=== PATIENT | male | born 1935 | race Two or more races ===

== ENCOUNTER 2018-11-04 10:46 | Inpatient (IN) | payer OTHER, MEDICARE ==
[~2018-11-04] VITALS: Ht 177.8 cm; Wt 74.8 kg
[~2018-11-04 10:46] MED LIST: ATOR10; HYDACE5 PO; NIFE30ER; SULTRISS; TAMS.4ER
[2018-11-04 11:40] LABS: BASOPHILS ABSOLUTE AUTO 0.02 K/mm3 (0.00-0.23); BASOPHILS PERCENT AUTO 0 % (0-2); EOSINOPHILS ABSOLUTE AUTO 0.04 K/mm3 (0.00-0.68); EOSINOPHILS PERCENT AUTO 1 % (0-6); Hematocrit 30.5 % (37.0-53.0); Hemoglobin 10.6 g/dL (13.5-17.5); IMMATURE GRAN ABSOLUTE AUTO 0.02 K/mm3 (0.00-0.10); IMMATURE GRAN PERCENT AUTO 0 % (0-1); LYMPHOCYTES ABSOLUTE AUTO 0.98 K/mm3 (0.84-5.20); LYMPHOCYTES PERCENT AUTO 19 % (21-46); MONOCYTES ABSOLUTE AUTO 0.94 K/mm3 (0.16-1.47); MONOCYTES PERCENT AUTO 18 % (4-13); Mean Corpuscular HGB 34.9 pg (26.0-34.0); Mean Corpuscular HGB Conc 34.8 g/dL (31.5-36.5); Mean Corpuscular Volume 100 fL (80-100); Mean Platelet Volume 10.4 fL (9.1-12.4); NEUTROPHILS ABSOLUTE AUTO 3.13 K/mm3 (1.96-9.15); NEUTROPHILS PERCENT AUTO 61 % (41-73); Platelet Count 174 K/mm3 (150-400); RDW Coefficient Variation 13.3 % (11.7-14.2); Red Blood Cell Count 3.04 M/mm3 (4.30-5.90); White Blood Cell Count 5.13 K/mm3 (4.00-11.30)
[2018-11-04 11:51] LABS: Alanine Aminotransfer (ALT/SGP 45 U/L (12-78); Albumin, Blood 2.3 g/dL (3.4-5.0); Albumin/Globulin Ratio 0.4 (0.8-1.8); Alk Phos 105 U/L (50-136); Anion Gap 6 mmol/L (6-16); Aspartate Aminotrans (AST/SGOT 69 U/L (12-37); Bilirubin, Total 0.6 mg/dL (0.1-1.0); Blood Urea Nitrogen 16 mg/dL (8-24); Bun/Creatinine Ratio 23.7 (12.0-20.0); CO2, Blood 25 mmol/L (21-32); Chloride, Blood 100 mmol/L (98-108); Creatinine, Blood 0.68 mg/dL (0.60-1.20); Glomerular Filtration Rate >60 (60-); Glucose, Blood 154 mg/dL (70-99); Potassium, Blood 3.6 mmol/L (3.5-5.5); Sodium, Blood 131 mmol/L (136-145); Total Protein, Blood 8.3 g/dL (6.4-8.2)
[2018-11-04] MEDS ORDERED: Zocor20 MG PO (12:51)
[2018-11-04] MEDS ORDERED: CARV6.25 PO (12:52)
[2018-11-04] MEDS ORDERED: AMOCLA875 PO (14:29)
[2018-11-04] MEDS ORDERED: Cephalexin500 M1 PO (14:29)
--- NOTE | 2018-11-04 18:40 | NUR ---
SHIFT SUMMARY: PATIENT ADMIT FROM ED THIS SHIFT. PT HX DEMENTIA; A&O X2; CALM AND COOPERATIVE WITH CARE. BILATERAL HEARING AIDES; PT VERY [place]. R FA CELLULITIS; AREA DEMARCATED; WOUND CULTURE TAKEN; DRESSING APPLIED. L ELBOW ABRASION/ SKIN TEAR; PICTURE TAKEN; DRESSING APPLIED; NO C/O PAIN. IV ABX & LR CONTINUING. WCTM.
[2018-11-05 05:08] LABS: BASOPHILS ABSOLUTE AUTO 0.02 K/mm3 (0.00-0.23); BASOPHILS PERCENT AUTO 1 % (0-2); EOSINOPHILS ABSOLUTE AUTO 0.09 K/mm3 (0.00-0.68); EOSINOPHILS PERCENT AUTO 2 % (0-6); Hematocrit 29.2 % (37.0-53.0); IMMATURE GRAN ABSOLUTE AUTO 0.01 K/mm3 (0.00-0.10); IMMATURE GRAN PERCENT AUTO 0 % (0-1); LYMPHOCYTES ABSOLUTE AUTO 1.11 K/mm3 (0.84-5.20); LYMPHOCYTES PERCENT AUTO 26 % (21-46); MONOCYTES ABSOLUTE AUTO 0.81 K/mm3 (0.16-1.47); MONOCYTES PERCENT AUTO 19 % (4-13); Mean Corpuscular HGB Conc 34.2 g/dL (31.5-36.5); Mean Corpuscular Volume 102 fL (80-100); Mean Platelet Volume 10.2 fL (9.1-12.4); NEUTROPHILS ABSOLUTE AUTO 2.22 K/mm3 (1.96-9.15); NEUTROPHILS PERCENT AUTO 52 % (41-73); Platelet Count 168 K/mm3 (150-400); RDW Coefficient Variation 13.2 % (11.7-14.2); RDW Standard Deviation 49.3 fL (35.1-46.3); Red Blood Cell Count 2.86 M/mm3 (4.30-5.90); White Blood Cell Count 4.26 K/mm3 (4.00-11.30)
[2018-11-05 05:32] LABS: Anion Gap 7 mmol/L (6-16); Blood Urea Nitrogen 11 mg/dL (8-24); Bun/Creatinine Ratio 16.9 (12.0-20.0); CO2, Blood 25 mmol/L (21-32); Chloride, Blood 101 mmol/L (98-108); Creatinine, Blood 0.65 mg/dL (0.60-1.20); Glomerular Filtration Rate >60 (60-); Glucose, Blood 92 mg/dL (70-99); Potassium, Blood 3.1 mmol/L (3.5-5.5); Sodium, Blood 133 mmol/L (136-145)
--- NOTE | 2018-11-05 06:29 | NUR ---
SHIFT SUMMARY PATEINT ORIENTED 2-3. FORGETFUL ABOUT PLACE AND LIMITATIONS. LEFT FOREARM DRESING INTACT. RIGHT FOREARM DRESSING INTACT BUT NOTED TO HAVE SOME BLOOD AND DRESSING. BED ALARM ON. PATIENT PULLED OUT IV WHEN ATTEMPTING TO GET OUT OF BED. IV REPLACED AND FLUIDS RUNNING TKO. HOME CAREGIVER CHRISSIE SPOKE TO THIS NURSE AND STATE SHE WOULD BE IN TO VISIT DURING DAY. PATEINT VERY PLEASANT BUT [place]. REDIRECTABLE AND FOLLOWS COMMANDS. HAD A FALL AT HOME THAT CAREGIVER STATES THE PATIENT TOLD HER HE HIT HIS HEAD VERY HARD ON GROUND. ABRASION ON LOWER BACK AND LEFT RIBS. SKIN TEAR ON LEFT FOREARM. WILL CONTINUE TO MONITOR AN REPORT TO ONCOMING RN.
--- NOTE | 2018-11-05 18:08 | NUR ---
PATIENT HAD DRESSINGS TO WOUND CHANGED THIS SHIFT. CONSULT CALLED AND PROVIDED. PT IS PLEASANT AND COOPERATIVE WITH CARES. HE DOES NOT APPEAR CONFUSED THIS SHIFT, JUST VERY [place]. NO COMPLAINTS OF PAIN. PATIENT ABLE TO AMBULATE TO THE RESTROOM WITH SBA. HE IS ABLE TO EXPRESS ANY NEEDS. CALL LIGHT WITHIN REACH.
[2018-11-06 03:31] LABS: Vancomycin, Trough 18.6 ug/mL (5.0-10.0)
--- NOTE | 2018-11-06 05:35 | NUR ---
SHIFT SUMMARY A/O, ABLE TO MAKE NEEDS KNOWN. VERY [place]. COOPERATIVE WITH CARE. ANSWERS QUESTIONS APPROPRIATELY. NO C/O PAIN/DISCOMFORT THIS SHIFT. DRESSING CHANGED DURING SHIFT ASSESSMENT; RE-YANNI ERYTHEMATOUS LINE, APPEARS TO BE RECEEDING. APPEARS HYPERTENSIVE THIS AM; ALL OTHER VS WNL. UP WITH SBA TO RESTROOM. NO OTHER ACUTE CHANGES NOTED. APPEARED TO REST MUCH OF SHIFT. WCTM. BED IN LOWEST POSITION; ALARM ON. CALL LIGHT AND BELONGINGS WITHIN REACH. REPORT TO ONCOMING RN.
--- NOTE | 2018-11-06 11:19 | NUR ---
History, Chart, Medications and Allergies reviewed before start of procedure. Patient confirms NPO status and agrees with scheduled surgery. Lungs clear T/O to Auscultation. Pre-Op teaching done. Pt verbalizes understanding. PATIENT LEFT HIS RING FROM HIS LEFT RING FINGER IN HIS PANTS POCKET IN HIS BELONGINGS BAG IN HIS ROOM. PATIENT APPEARS TO HAVE A COMPLETE UNDERSTANDING OF THE SITUATION AND THE PLANNED SURGERY. ABLE TO ANSWER ALL QUESTIONS APPROPRIATELY. PATIENT VERY [place]SLY [place] AND EVERY EFFORT TO ASSURE UNDERSTANDING MADE PRIOR TO SURGICAL INTERVENTION.
--- NOTE | 2018-11-06 11:27 | NUR ---
WHEEL PRESSER REPORT AT BEDSIDE COMPLETE.
--- NOTE | 2018-11-06 11:28 | NUR ---
NO HEARING DEVICES IN PER PATIENT BATTERIES ARE THEY ARE IN HIS BELONGINGS IN THE ROOM.
--- NOTE | 2018-11-06 12:24 | NUR ---
REPORT GIVEN TO ALESIA NJ RN.
--- NOTE | 2018-11-06 12:32 | NUR ---
ASSUMED PT CARE FROM KAYLA FERNANDO RN. PT REPORTS PAIN 09/23.
--- NOTE | 2018-11-06 18:51 | NUR ---
SHIFT SUMMARY MARIA G WENT TO OR TODAY FOR I&D OF HIS RUE. COMPLAINS OF PAIN 04/23 FOR WHICH HE GETS TYLENOL. VERY ELEM. OT AND CASE MANAGEMENT SAW HIM, SOME CONCERNS ABOUT SAFE DISCHARGE, SEE OT NOTE. WTD DAILY DRESSINGS ORDERED, DRESSING CDI. SBA TO BR, BED ALARM ON, PT FORGETS TO CALL. TOOK MEDS PRESCRIBED. CALL LIGHT IN REACH, [facility]
[2018-11-07 04:30] LABS: BASOPHILS ABSOLUTE AUTO 0.01 K/mm3 (0.00-0.23); BASOPHILS PERCENT AUTO 0 % (0-2); EOSINOPHILS PERCENT AUTO 0 % (0-6); Hematocrit 28.9 % (37.0-53.0); IMMATURE GRAN ABSOLUTE AUTO 0.03 K/mm3 (0.00-0.10); IMMATURE GRAN PERCENT AUTO 1 % (0-1); LYMPHOCYTES ABSOLUTE AUTO 0.73 K/mm3 (0.84-5.20); LYMPHOCYTES PERCENT AUTO 13 % (21-46); MONOCYTES ABSOLUTE AUTO 0.69 K/mm3 (0.16-1.47); MONOCYTES PERCENT AUTO 13 % (4-13); Mean Corpuscular HGB 35.2 pg (26.0-34.0); Mean Corpuscular HGB Conc 34.6 g/dL (31.5-36.5); Mean Corpuscular Volume 102 fL (80-100); Mean Platelet Volume 9.7 fL (9.1-12.4); NEUTROPHILS ABSOLUTE AUTO 3.98 K/mm3 (1.96-9.15); NEUTROPHILS PERCENT AUTO 73 % (41-73); Platelet Count 220 K/mm3 (150-400); RDW Coefficient Variation 12.6 % (11.7-14.2); RDW Standard Deviation 47.8 fL (35.1-46.3); Red Blood Cell Count 2.84 M/mm3 (4.30-5.90); White Blood Cell Count 5.44 K/mm3 (4.00-11.30)
[2018-11-07 04:50] LABS: Anion Gap 7 mmol/L (6-16); Blood Urea Nitrogen 14 mg/dL (8-24); Bun/Creatinine Ratio 19.4 (12.0-20.0); CO2, Blood 25 mmol/L (21-32); Calcium, Blood 8.1 mg/dL (8.5-10.1); Chloride, Blood 99 mmol/L (98-108); Creatinine, Blood 0.72 mg/dL (0.60-1.20); Glomerular Filtration Rate >60 (60-); Glucose, Blood 126 mg/dL (70-99); Potassium, Blood 4.1 mmol/L (3.5-5.5); Sodium, Blood 131 mmol/L (136-145)
--- NOTE | 2018-11-07 05:17 | NUR ---
UNIT AIDE SUMMARY NO ACUTE CHANGES THIS SHIFT. PT AAOX3 WITH SOME OCCASIONAL FORGETFULNESS. DRESSING ON SURGICAL SITE ON RFA C/D/I. PT DENIES PAIN. CONTINUED ON IV ABX. POST OP VITALS WNL. WILL CONTINUE TO MONITOR.
--- NOTE | 2018-11-07 17:56 | NUR ---
SHIFT SUMMARY NO ACUTE CHANGES. PATIENT DENIES PAIN, NAUSEA, AND SHORTNESS OF BREATH. UP SBA IN ROOM. WORKED WITH OT TODAY. PATIENT ORIENTED BUT WITH EPISODES OF CONFUSION. PLEASANT AND CCOPERATIVE WITH CARE. WOUND CARE AND DRESSING CHANGE COMPLETED ON RIGHT ARM. BED ALARM FOR SAFETY, CALL LIGHT IN REACH.
--- NOTE | 2018-11-08 05:37 | NUR ---
SHIFT SUMMARY: Pt alert and responding appropriately. Very [place]. VSS. Denies pain. Drsg intact to RFA. Fingers/hand visible distal to drsg are edematous +1. Voided several times during the night, waiting for staff assist with t/f each time. Urine stream hesitant and stops and starts mid stream. Call button within reach. No acute changes in condition during the noc.
[2018-11-08 06:00] LABS: Anion Gap 7 mmol/L (6-16); Blood Urea Nitrogen 13 mg/dL (8-24); Bun/Creatinine Ratio 16.6 (12.0-20.0); CO2, Blood 25 mmol/L (21-32); Calcium, Blood 8.5 mg/dL (8.5-10.1); Chloride, Blood 104 mmol/L (98-108); Creatinine, Blood 0.78 mg/dL (0.60-1.20); Glomerular Filtration Rate >60 (60-); Glucose, Blood 87 mg/dL (70-99); Sodium, Blood 136 mmol/L (136-145)
--- NOTE | 2018-11-08 18:45 | NUR ---
SHIFT SUMMARY NO ACUTE CHANGES. PATIENT DENIES PAIN, NAUSEA, AND SHORTNESS OF BREATH. PATIENT UP SBA IN ROOM. PATIENT EATING AND DRINKING WELL. PATIENT WORKED WITH OT TODAY. WOUND CLEANED AND DRESSING CHANGED THIS SHIFT. CALL LIGHT IN REACH.
--- NOTE | 2018-11-09 08:08 | NUR ---
EOS: NO ACUTE CHANGES THIS SHIFT. PATIENT SLEPT WELL, DENIES PAIN.. RECEIVED IV ANTIBIOTICS PER ORDER. STML AND VERY TORRES MARTINEZ NOTED. DRESSING ON RFA C/D/I
--- NOTE | 2018-11-09 18:34 | NUR ---
SHIFT SUMMARY PATIENT IS ALERT AND ORIENTED WITH SOME NOTED CONFUSION. VERY COOPERATIVE AND POLITE WITH STAFF. DENIES PAIN AND DISCOMFORT. CONTINUES ON IV ABX WITHOUT S/SX ADVERSE REACTION. WILL CONTINUE TO MONITOR AND PROVIDE CARE NEEDED.
--- NOTE | 2018-11-10 07:00 | NUR ---
SHIFT NOTE: PATIENT WAS PLEASANT AND COOPERATIVE THIS SHIFT AND I HAVE NO ACUTE CHANGES TO REPORT
--- NOTE | 2018-11-10 16:50 | NUR ---
SHIFT SUMMARY THE PATIENT HAS HAD AN UNEVENTFUL DAY. DENIES PAIN OR DISCOMFORT. COOPERATIVE AND PLEASANT WITH STAFF. COMPLIANT WITH CARE. DRESSINGS TO BILATERAL ARMS CHANGED THIS MORNING. PATIENT IS CURRENTLY RESTING IN HIS ROOM AT THIS TIME. WILL CONTINUE TO MONITOR AND PROVIDE CARE NEEDED.
--- NOTE | 2018-11-10 22:19 | NUR ---
1919: ASSUMED CARE OF PATIENT. PT SITTING UP IN BED WITH EYES CLOSE, IN NO APPARENT DISTRESS. HE IS AO3, DEMIES PAIN, SOB, NAUSEA, BED LOW AND ALARMED. CALL BARRY WITHIN REACH. 2021: ASSESSMENTS COMPLETED. IV LFA STILL FLUSHING WELL, C/D/I. CHANGED DRESSING ON LEFT ELBOW. APPLIED PETROLEUM GAUZE, NON-ADHERENT, AND AN SHE OVER TOP TO HOLD IN PLACE.
--- NOTE | 2018-11-11 18:21 | NUR ---
SHIFT SUMMARY NO ACUTE CHANGES AT THIS TIME. HE IS AWAITING CURRENT DISCHARGE PLANS. PATIENT HAS BEEN CALLING APPROPRIATELY AND VERY PLEASANT TODAY.
--- NOTE | 2018-11-12 06:31 | NUR ---
SHIFT SUMMARY PT IS AN 83 Y/O MALE, ADMITTED WITH R FOREARM CELLULITIS WITH A RECENT SURGICAL I&D TO THE SITE. DRESSING IS INTACT, THOUGH PT REFUSED A DRESSING CHANGES DURING THE NIGHT. HE IS A&O X 3, THOUGH VERY [place]. PT DENIED ANY COMPLAINTS OF PAIN, NAUSEA OR SOB. VITAL SIGNS STABLE. PT SLEPT WELL DURING THE NIGHT. NO OTHER ACUTE CHANGES IN PT CONDITION NOTED. WILL CONTINUE TO MONITOR AND TREAT PER EMAR UNTIL HAND OFF TO DAY SHIFT RN.
--- NOTE | 2018-11-12 17:33 | NUR ---
PT IN BED THROUGHOUT THIS SHIFT. PT ALERT AND ORIENTED DURING THIS SHIFT. BANDAGES WERE CHANGED BUE THIS AM. PT SLEPT DURING MUCH OF THE AFTERNOON. PT VERY [place]. PT FRIENDLY AND COOPERATIVE WITH CARE. PT CURRENTLY RESTING IN BED, NO ADDITIONAL NEEDS AT THIS TIME. WILL CONTINUE TO MONITOR.
--- NOTE | 2018-11-13 06:23 | NUR ---
SHIFT SUMMARY PT IS AN 83 Y/O MALE, ADMITTED FOR CELLULITIS OF THE R FOREARM, WITH A SURGICAL I&D PERFORMED 11/07. HE IS A&O X 2-3, FORGETFUL AND VERY [place], THOUGH COOPERATIVE WITH CARE. PT IS A 1PA TO THE BATHROOM. NO COMPLAINTS OF PAIN, NAUSEA OR SOB. VITAL SIGNS STABLE. NO OTHER ACUTE CHANGES IN PT CONDITION NOTED DURING THE NIGHT. WILL CONTINUE TO MONITOR AND TREAT PER EMAR UNTIL HAND OFF TO DAY SHIFT RN.
--- NOTE | 2018-11-13 17:12 | NUR ---
SHIFT SUMMARY PT PLEASANT AND CO-[place], BUT VERY [place]. ADMITTED FOR CELLULITIS TO [facility] WITH SX I&D ON 11/07, PER REPORT. DRSG TO [facility] C/D/I AT START OF SHIFT. PT DENIED PAIN, "NOT TOO BAD". DECLINED NEEDING ANY PAIN MEDICATION. DR MILLS IN TO SEE PT TODAY; D/C ORDERS PLACED FOR PT TO GO HOME W/HOME HEALTH. PT REPORTED THAT HE ALSO HAS A CAREGIVER. D/C INSTRUCTIONS GIVEN TO PT; VERBALIZED UNDERSTANDING. I CALLED TO TAKE PT BACK TO HIS HOME. PT VERY GRATEFUL FOR CARE GIVEN. ASSISTED TO EITAN VIA W/C BY YAIMA.
== END 2018-11-13 13:41 | disposition home health service (06) | DRG 580 ==
LOC: ER 10:46 → MEDS 12:34 → ENPENDDIS 11-13 10:18 → MEDS 11-13 13:41
PROVIDERS: Emergency Medicine; Hospitalist; Surgery; ADMIT Internal Medicine
PROC: 0J9G0ZZ Drainage of Right Lower Arm Subcutaneous Tissue and Fascia, Open Approach (ICD-10-PCS; principal; 2018-11-06 11:30)
DX: L03.113 Cellulitis of right upper limb (principal); E87.1 Hypo-osmolality and hyponatremia; L02.413 Cutaneous abscess of right upper limb; B96.89 Other specified bacterial agents as the cause of diseases classified elsewhere; H91.90 Unspecified hearing loss, unspecified ear; F03.90 Unspecified dementia, unspecified severity, without behavioral disturbance, psychotic disturbance, mood disturbance, and anxiety; E87.6 Hypokalemia; F10.10 Alcohol abuse, uncomplicated; D63.8 Anemia in other chronic diseases classified elsewhere; S51.851A Open bite of right forearm, initial encounter; W55.01XA Bitten by cat, initial encounter; Z87.891 Personal history of nicotine dependence; Z79.891 Long term (current) use of opiate analgesic; Z79.899 Other long term (current) drug therapy
CPT/HCPCS: 36415; 73201; 80048; 80053; 80202; 83605; 85025; 87040; 87070; 87075; 87077; 87205; 93005; 93010; 97166; 97530; 97535; 99284; A9270; G0515; J0690; J1100; J1650; J2405; J2704; J3010; J3370; J7040; J7120; Q9967

== ENCOUNTER 2018-12-07 14:40 | Day surgery (SDC) | payer MEDICARE ==
[~2018-12-07 14:40] MED LIST changes: +AMOCLA875 PO; +CARV6.25 PO; +Cephalexin500 M1 PO; +Zocor20 MG PO
== END 2018-12-07 23:52 | disposition home or self-care (01) ==
LOC: WOUND 14:40
DX: L98.498 Non-pressure chronic ulcer of skin of other sites with other specified severity (principal); M85.80 Other specified disorders of bone density and structure, unspecified site; I25.10 Atherosclerotic heart disease of native coronary artery without angina pectoris; E78.5 Hyperlipidemia, unspecified; I10 Essential (primary) hypertension; Z87.891 Personal history of nicotine dependence

== ENCOUNTER 2018-12-12 00:09 | Day surgery (SDC) | payer MEDICARE | END 2018-12-12 22:34 | disposition home or self-care (01) | LOC: WOUND 00:09 | DX: L98.492 Non-pressure chronic ulcer of skin of other sites with fat layer exposed (principal); I25.10 Atherosclerotic heart disease of native coronary artery without angina pectoris; E78.5 Hyperlipidemia, unspecified; I10 Essential (primary) hypertension ==

== ENCOUNTER 2018-12-14 00:19 | Day surgery (SDC) | payer MEDICARE | END 2018-12-14 23:14 | disposition home or self-care (01) | LOC: WOUND 00:19 | DX: S51.851A Open bite of right forearm, initial encounter (principal); L98.492 Non-pressure chronic ulcer of skin of other sites with fat layer exposed; I96 Gangrene, not elsewhere classified; I25.10 Atherosclerotic heart disease of native coronary artery without angina pectoris; E78.5 Hyperlipidemia, unspecified; I10 Essential (primary) hypertension; W55.01XA Bitten by cat, initial encounter ==

== ENCOUNTER → 2018-12-19 | Outpatient (CLI) | payer MEDICARE | END | disposition home or self-care (01) | LOC: LAB SHORT 16:30 → LAB 16:30 → EDSTATUS 12-20 12:15 → LAB FUT 12-20 12:15 | DX: N39.0 Urinary tract infection, site not specified (principal) | CPT/HCPCS: 87077; 87086; 87186 ==

== ENCOUNTER 2018-12-22 00:26 | Day surgery (SDC) | payer MEDICARE | END 2018-12-22 22:53 | disposition home or self-care (01) | LOC: WOUND | DX: S51.801A Unspecified open wound of right forearm, initial encounter (principal); I25.10 Atherosclerotic heart disease of native coronary artery without angina pectoris; E78.5 Hyperlipidemia, unspecified; I10 Essential (primary) hypertension; W55.01XA Bitten by cat, initial encounter ==

== ENCOUNTER 2018-12-29 10:12 | Day surgery (SDC) | payer MEDICARE, OTHER | END 2018-12-29 23:50 | disposition home or self-care (01) | LOC: WOUND 10:12 | DX: L98.492 Non-pressure chronic ulcer of skin of other sites with fat layer exposed (principal); I10 Essential (primary) hypertension; E78.5 Hyperlipidemia, unspecified; I25.10 Atherosclerotic heart disease of native coronary artery without angina pectoris ==

== ENCOUNTER 2019-01-04 15:02 | Day surgery (SDC) | payer MEDICARE | END 2019-01-04 23:13 | disposition home or self-care (01) | LOC: WOUND 15:02 | DX: S51.851A Open bite of right forearm, initial encounter (principal); I25.10 Atherosclerotic heart disease of native coronary artery without angina pectoris; E78.5 Hyperlipidemia, unspecified; I10 Essential (primary) hypertension; W55.01XA Bitten by cat, initial encounter ==

== ENCOUNTER 2021-12-27 18:00 | Emergency (ER) | payer MEDICARE, OTHER ==
[~2021-12-27] VITALS: Ht 177.8 cm; Wt 74.8 kg
[2021-12-27] MEDS ORDERED: Tessalon200 MG PO (19:18)
== END 2021-12-27 20:34 | disposition home or self-care (01) ==
LOC: ER 18:00
DX: J11.1 Influenza due to unidentified influenza virus with other respiratory manifestations (principal); R49.0 Dysphonia; Z87.891 Personal history of nicotine dependence
CPT/HCPCS: 71045; 93005; 93010

== ENCOUNTER 2022-03-28 18:02 | Inpatient (IN) | payer MEDICARE, OTHER ==
[~2022-03-28] VITALS: Ht 170.2 cm; Wt 77.9 kg
[~2022-03-28 18:02] MED LIST changes: +Tessalon200 MG PO
[2022-03-28 18:38] LABS: Hematocrit 32.4 % (37.0-53.0); Hemoglobin 11.5 g/dL (13.5-17.5); Mean Corpuscular HGB 32.5 pg (26.0-34.0); Mean Corpuscular HGB Conc 35.5 g/dL (31.5-36.5); Mean Corpuscular Volume 92 fL (80-100); Mean Platelet Volume 10.6 fL (9.1-12.4); Platelet Count 162 K/mm3 (150-400); RDW Coefficient Variation 15.2 % (11.7-14.2); RDW Standard Deviation 50.8 fL (35.1-46.3); Red Blood Cell Count 3.54 M/mm3 (4.30-5.90); White Blood Cell Count 7.18 K/mm3 (4.00-11.30)
[2022-03-28 18:53] LABS: Albumin, Blood 1.7 g/dL (3.4-5.0); Albumin/Globulin Ratio 0.3 (0.8-1.8); Bun/Creatinine Ratio 39.5 (12.0-20.0); Creatinine, Blood 1.29 mg/dL (0.60-1.20); Globulin, Blood 5.3 g/dL (2.2-4.0); Magnesium, Blood 1.9 mg/dL (1.6-2.4); Potassium, Blood 3.3 mmol/L (3.5-5.5)
[2022-03-28 19:08] LABS: BAND PERCENT MAN 9 % (0-8); BASOPHILS PERCENT MAN 0 % (0-2); EOSINOPHILS PERCENT MAN 0 % (0-6); LYMPHOCYTES ABSOLUTE MAN 0.28 K/mm3 (0.84-5.20); LYMPHOCYTES PERCENT MAN 4 % (21-46); MONOCYTES ABSOLUTE MAN 0.07 K/mm3 (0.16-1.47); MONOCYTES PERCENT MAN 1 % (4-13); NEUTROPHILS ABSOLUTE MAN 6.82 K/mm3 (1.96-9.15); SEG NEUTROPHILS PERCENT MAN 86 % (41-73); TOTAL CELLS COUNTED 100
[2022-03-28 19:50] LABS: Influenza A, PCR NEGATIVE (NEGATIVE); Influenza B, PCR NEGATIVE (NEGATIVE); Resp Syncytial Virus, PCR NEGATIVE (NEGATIVE); SARS-Cov-2 (COVID-19) PCR, MMC NEGATIVE (NEGATIVE)
--- NOTE | 2022-03-29 00:55 | NUR ---
PATIENT ARRIVED TO ICU 5 VIA GURNEY FROM ED WITH NRB MASK IN PLACE. PATIENT AWAKE AND COOPERATIVE WITH CARE. TRANSFERRED TO ICU BED AND PLACED ON ICU MONITORS, PATIENT PLACED ON AIRVO 45L FIO2 65% BY RT. MOIST COUGH, LUNG SOUNDS COARSE T/O. HYPOTENSION CONTINUES. LEVOPHED OFF AT THIS TIME.
--- NOTE | 2022-03-29 01:30 | NUR ---
2ND IV OBTAINED AND LEVOPHED RESTARTED DUE TO CONTINUED HYPOTENSION.
--- NOTE | 2022-03-29 02:00 | NUR ---
PATIENT HAS STRONG MOIST COUGH, CONTINUES TO NOT BE ABLE TO PRODUCE SPUTUM. ORAL CARE AND DEEP ORAL SUCTIONING OBTAINING THICK ALVAREZ SPUTUM. BIOX CONTINUES 88-89% AIRVO ADJUSTED BY RT TO 60L FIO2 65%
--- NOTE | 2022-03-29 02:16 | NUR ---
REJI RAMP AGENT AT [facility] CALLED AND GIVEN UP DATE, SHE WAS UNABLE TO GIVE MEDICATION LIST, OR OTHER HEALTH HISTORY INFORMATION. PLAN FOR KD ROW, AND DAY SHIFT RN TO CALL TOMORROW TO PROVIDE INFORMATION.
[2022-03-29 03:18] LABS: Hematocrit 33.5 % (37.0-53.0); Hemoglobin 11.2 g/dL (13.5-17.5); Mean Corpuscular HGB 31.5 pg (26.0-34.0); Mean Corpuscular HGB Conc 33.4 g/dL (31.5-36.5); Mean Corpuscular Volume 94 fL (80-100); Mean Platelet Volume 10.6 fL (9.1-12.4); Platelet Count 146 K/mm3 (150-400); RDW Coefficient Variation 15.6 % (11.7-14.2); RDW Standard Deviation 54.1 fL (35.1-46.3); Red Blood Cell Count 3.56 M/mm3 (4.30-5.90); White Blood Cell Count 4.67 K/mm3 (4.00-11.30)
[2022-03-29 03:37] LABS: Albumin, Blood 1.4 g/dL (3.4-5.0); Albumin/Globulin Ratio 0.3 (0.8-1.8); Bilirubin, Total 0.9 mg/dL (0.1-1.0); Bun/Creatinine Ratio 44.4 (12.0-20.0); Calcium, Blood 7.1 mg/dL (8.5-10.1); Creatinine, Blood 1.26 mg/dL (0.60-1.20); Globulin, Blood 4.7 g/dL (2.2-4.0); Potassium, Blood 3.5 mmol/L (3.5-5.5); Total Protein, Blood 6.1 g/dL (6.4-8.2)
[2022-03-29 03:48] LABS: BAND PERCENT MAN 43 % (0-8); BASOPHILS PERCENT MAN 0 % (0-2); EOSINOPHILS PERCENT MAN 0 % (0-6); LYMPHOCYTES ABSOLUTE MAN 0.18 K/mm3 (0.84-5.20); LYMPHOCYTES PERCENT MAN 4 % (21-46); MONOCYTES ABSOLUTE MAN 0.14 K/mm3 (0.16-1.47); MONOCYTES PERCENT MAN 3 % (4-13); MYELOCYTE ABSOLUTE MAN 0.04 K/mm3 (0.00-0.00); MYELOCYTE PERCENT MAN 1 % (0-0); NEUTROPHILS ABSOLUTE MAN 4.29 K/mm3 (1.96-9.15); SEG NEUTROPHILS PERCENT MAN 49 % (41-73); TOTAL CELLS COUNTED 100
[2022-03-29 05:41] LABS: Source, Urine Foley catheter
[2022-03-29 05:59] LABS: Appearance, Urine Clear (Clear); Bilirubin, Urine Neg (Neg); Blood, Urine Neg (Neg); Color, Urine Brown (P-Yellow); Glucose Qualitative, Urine Neg (Neg); Ketones, Urine 1+ (Neg); Leukocyte Esterase, Urine 1+ (Neg); Nitrite, Urine Neg (Neg); Protein, Urine 3+ (Neg); Specific Gravity, Urine 1.015 (1.003-1.022); Urobilinogen, Urine 1+ (Normal)
[2022-03-29 06:16] LABS: Amorphous Light (0-Heavy); Bacteria Few /hpf; Hyaline Casts 0-2 /lpf (0-2); Red Blood Cells, Urine Not Seen /hpf (0-2); Squamous Epithelial Cells Rare /hpf (Few)
--- NOTE | 2022-03-29 06:25 | NUR ---
SUMMARY PATIENT AWAKE CONFUSED AND IMPULSIVE. AIRVO IN PLACE TITRATED UP TO 60L FIO2 75% CLEARING THROAT BETTER AFTER FREQUENT ORAL CARE. SMALL AMT OF THICK ALVAREZ SPUTUM OBTAINED WITH DEEP ORAL SUCTIONING. HYPOTENSION CONTINUES WITH LEVOPHED TITRATED TO 5 MCG.
--- NOTE | 2022-03-29 10:08 | NUR ---
MARIA G IS VERY PLEASANT. HE IS ENGAGING AND POLITE, HE IS FOREGETFUL. HE CONTINUES ON HFNC 60L 75% AND TOLERATING WELL, HE IS ABLE TO TAKE IN HIS MEAL TRAY OF CLEAR LIQUIDS WITHOUT INCIDENT. HE IS ABLE TO WIGGLE HIMSELF ABOUT IN THE BED. HE CONTINUES ON THE NOREPINEPHRINE @ 5MCG, LR INCREASED TO 150ML/HR, NS @ TKO FOR ANTIBIOTICS. CHING TO GRAVITY WITH DARK RETURN. [facility] MGR AND PT'S POA HAVE BOTH CALLED TO CHECK IN REGARDING HIM.
--- NOTE | 2022-03-29 12:50 | NUR ---
MARIA G IS BEGINNING TO SEE CATS AND LADIES IN HIS ROOM. HE IS REDIRECTABLE AND CONTINUES TO BE PLEASANT. HIS BP REMAINS LABILE, LEVO @ 6MCG FOR MAP >65. HE HAD HIS SWALLOW EVAL. ORAL CARE POST MEAL ILLICITS FOOD POCKETED IN CHEEKS. HE FEELS LESS FEVERISH THAN EARLIER TODAY. TEMPORAL TEMP REMAINS AFEBRILE.
--- NOTE | 2022-03-29 14:45 | NUR ---
RETURNED FOR ROUNDING AGAIN. DISCUSSED LOW URINE OUTPUT, BLADDER SCAN DONE WITH <50ML NOTED IN SEVERAL QUADRANTS. 500ML FLUID BOLUS GIVEN WITH CURRENT LR, THEN RETURN TO 150ML/HR. R/T ROUNDING AND HE IS TURNED DOWN TO 50L AND 65%. HE CONTINUES TO SEE LADIES AND CATS INTERMITTENTLY. LEVO DOWN TO 3MCG AND BP 96/48 (63). BREATHING CONTINUES TACHYPNEIC AND LUNG SOUNDS COARSE ANT- ERIORLY. ABLE TO COUGH AND CLEAR. WHEN AIRVO REMOVED PT DOWN TO LOW 80'S ON SATURATION. DR. MCINTYRE.
--- NOTE | 2022-03-29 18:35 | NUR ---
PROVIDER UPDATE: Dr Penaloza called and notified of afib with RVR on monitor. States he will place new orders.
[2022-03-29] MEDS ORDERED: NAPR500ERA PO (18:39)
[2022-03-29] MEDS ORDERED: MIRALAX17 GM PO (18:40)
[2022-03-29] MEDS ORDERED: Simvastatin20 MG PO (18:41)
[2022-03-29] MEDS ORDERED: LOPE2C PO (18:42)
[2022-03-29] MEDS ORDERED: MEMA5TAB PO (18:42)
[2022-03-29] MEDS ORDERED: ROBITUSSIN PO (18:43)
[2022-03-29] MEDS ORDERED: CARV6.25 PO (18:44)
[2022-03-29] MEDS ORDERED: Calcium Carbon500 MG PO (18:44)
[2022-03-29] MEDS ORDERED: ACET325 PO ×2 (18:45→18:46)
[2022-03-29] MEDS ORDERED: Tessalon200 MG PO (18:45)
[2022-03-29] MEDS ORDERED: ASPI81CH PO (18:45)
[2022-03-29] MEDS ORDERED: LORA10ER PO (18:45)
--- NOTE | 2022-03-29 19:27 | NUR ---
PHUONG HAS GONE IN TO AFIB WITH RVR WHILST LAYING IN BED. HE WAS DENYING ANY COMPLAINTS AT THE TIME. HIS BP HAS BEEN LABILE AND HIS BREATHING MORE TACHYP- NEIC WITH THE ONSET OF THE AFIB. THE LEVOPHED HAS BEEN TITRATED FROM 2-5MCG TO KEEP THE MAP >65. MARIA G CONTINUES TO BE CONCERNED ABOUT GETTING DRESSED UP AND HEADING OUT, HE HAS THINGS TO DO. HE IS OFTEN REDIRECTABLE, ALTHOUGH WITH THE INCREASE IN THE HR, HIS CONFUSION HAS BEEN MORE EVIDENT. SPOKE WITH AND ORDERS RECEIVED. SPOKE WITH TIA AT THE [facility] AND MEDICATION REC WAS COMPLETED. REPORT OF CURRENT EVENTS HAS BEEN GIVEN TO ROCHELLE BONILLA AND THE NEW INFORMATION/ORDERS FROM .
--- NOTE | 2022-03-29 20:24 | NUR ---
PATIENT AWAKE AND CONFUSED, FORGETFUL AND IMPULSIVE. EASILY REDIRECTABLE. MAEW ATTEMPTS TO ASSIST WITH REPOSITIONING AND CARE. AIRVO 55L FIO2 81% IN PLACE, MOIST COUGH WITH SMALL AMT THICK ALVAREZ SPUTUM OBTAINED WITH DEEP ORAL SUCTION. AMIODARONE IV STARTED FOR AFIB WITH RVR, HEART RATE NOW 90-100 SINUS RHYTHM WITH PAC'S AND PVC'S. LEVOPHED 4 MCG INFUSING FOR HYPOTENSION.
[2022-03-29 20:30] LABS: Albumin, Blood 1.2 g/dL (3.4-5.0); Albumin/Globulin Ratio 0.3 (0.8-1.8); Bilirubin, Total 0.6 mg/dL (0.1-1.0); Bun/Creatinine Ratio 47.2 (12.0-20.0); Calcium, Blood 7.4 mg/dL (8.5-10.1); Creatinine, Blood 1.08 mg/dL (0.60-1.20); Globulin, Blood 4.5 g/dL (2.2-4.0); Potassium, Blood 3.3 mmol/L (3.5-5.5); Thyroid Stimulating Hormone 1.2 uIU/mL (0.360-4.800); Total Protein, Blood 5.7 g/dL (6.4-8.2)
--- NOTE | 2022-03-30 02:00 | NUR ---
DOCTOR SAMSON NOTIFIED OF INCREASED IN MOIST COUGH, LEVOPHED NOW OFF. LR DC'D AND DIET ORDER PLACED.
--- NOTE | 2022-03-30 03:03 | NUR ---
PATIENT CONTINUES TO BE CONFUSED AND IMPULSIVE. PULLING AT IV LINES AND CHING DESPITE BEING COVERED WITH MESH SLEEVES, AND UNUSED NRB MASK GIVEN A DISTRACTION. PATIENT PULLING OFF AIRVO, AND BIOX DOWN TO 80% QUICKLY. BACK TO 95% WITH AIRVO IN PLACE. BILAT WRIST RESTRAINTS PLACED TO PROTECT IV LINES AND TO KEEP OXYGEN IN PLACE.
[2022-03-30 03:31] LABS: Hematocrit 31.7 % (37.0-53.0); Mean Corpuscular HGB 32.3 pg (26.0-34.0); Mean Corpuscular HGB Conc 34.7 g/dL (31.5-36.5); Mean Corpuscular Volume 93 fL (80-100); Platelet Count 175 K/mm3 (150-400); RDW Coefficient Variation 15.9 % (11.7-14.2); RDW Standard Deviation 54.5 fL (35.1-46.3); Red Blood Cell Count 3.41 M/mm3 (4.30-5.90); White Blood Cell Count 9.48 K/mm3 (4.00-11.30)
[2022-03-30 03:49] LABS: Albumin, Blood 1.1 g/dL (3.4-5.0); Albumin/Globulin Ratio 0.2 (0.8-1.8); Bilirubin, Total 0.7 mg/dL (0.1-1.0); Bun/Creatinine Ratio 45.4 (12.0-20.0); Calcium, Blood 7.1 mg/dL (8.5-10.1); Creatinine, Blood 0.95 mg/dL (0.60-1.20); Globulin, Blood 4.6 g/dL (2.2-4.0); Potassium, Blood 3.8 mmol/L (3.5-5.5); Total Protein, Blood 5.7 g/dL (6.4-8.2)
[2022-03-30 05:16] LABS: BAND PERCENT MAN 17 % (0-8); BASOPHILS PERCENT MAN 0 % (0-2); EOSINOPHILS ABSOLUTE MAN 0.09 K/mm3 (0.00-0.68); EOSINOPHILS PERCENT MAN 1 % (0-6); LYMPHOCYTES ABSOLUTE MAN 0.75 K/mm3 (0.84-5.20); LYMPHOCYTES PERCENT MAN 8 % (21-46); METAMYELOCYTE ABSOLUTE MAN 0.09 K/mm3 (0.00-0.00); METAMYELOCYTE PERCENT MAN 1 % (0-0); MONOCYTES ABSOLUTE MAN 0.18 K/mm3 (0.16-1.47); MONOCYTES PERCENT MAN 2 % (4-13); MYELOCYTE ABSOLUTE MAN 0.09 K/mm3 (0.00-0.00); MYELOCYTE PERCENT MAN 1 % (0-0); NEUTROPHILS ABSOLUTE MAN 8.24 K/mm3 (1.96-9.15); SEG NEUTROPHILS PERCENT MAN 70 % (41-73); TOTAL CELLS COUNTED 100
--- NOTE | 2022-03-30 06:21 | NUR ---
SUMMARY PATIENT AWAKE MOST OF THE NIGHT, CONFUSION AND RESTLESSNESS INCREASING. BILAT WRIST RESTRAINTS PLACED TO REMIND PATIENT TO NOT REMOVE OXYGEN AND NOT PULL ON IV LINES. PATIENT NOW SLEEPING, AWAKENS TO STIMULI, FALLING BACK TO SLEEP WHEN UNDISTURBED. AIRVO 55L FIO2 70% REMAINS IN PLACE FREQUENT ORAL CARE AND DEEP ORAL SUCTIONING PROVIDED SEVERAL TIME T/O NIGHT. HYPOTENSION CONTINUES LEVOPHED TITRATED T/O NIGHT SEE FLOW SHEET. AMIODARONE 0.5MCG. SINUS RHYTHM 70'S THIS MORNING.
--- NOTE | 2022-03-30 10:34 | NUR ---
SHIFT ASSESSMENT PT SLEEPING BUT EASILY AROUSABLE. VERY [place] PER PT, 1 HEARING AID IN L EAR. PT ALERT TO PERSON AND YEAR, UNSURE WHY HE IS HERE. THIS NURSE UPDATED PT OF CURRENT SITUATION. PT CALM AND COOPERATIVE WITH CARE, ABLE TO ASSIST WITH TURNS BUT REMAINS WEAK. LEVOPHED INITIALLY INFUSING @ 3MCG'S, ON STANDBY CURRENTLY. AMIO GTT INFUSING @ 0.5MG/HR, NSR ON PAINTER SUPERVISOR. PT TOLERATING PO MEDS AND FOOD, APPETITE DIMINISHED. SMALL BM THIS AM. CHING CATH PATENT, DRAINING MAURY URINE. PLAN ON TRANSITIONING TO PO MEDS THIS AFTERNOON FOR BP AND HR.
--- NOTE | 2022-03-30 19:08 | NUR ---
SHIFT SUMMARY PT REMAINS ALERT TO PERSON, FOLLOWING SIMPLE COMMANDS, ASSISTING WITH TURNS BUT TOO WEAK TO GET OUT OF BED. LEVOPHED OFF SINCE MID MORNING, MAP >65. PT NOW ON 3LPM O2 VIA NC c SATS >90%. LR INFUSING @ 125ML/HR. CHING CATH PATENT, 500ML OUT TODAY, YELLOW IN COLOR. PT NOW NPO, BARIUM STUDY SCHEDULED FOR TOMORROW. REPORT GIVEN TO ONCOMING NURSE.
--- NOTE | 2022-03-30 19:32 | NUR ---
PATIENT SLEEPING, AWAKENS TO VERBAL STIMULI. COOPERATIVE AND ASSISTING WITH CARE, YET CONTINUES TO BE CONFUSED AND NEEDING REMINDING OF DATE AND TO BEING IN THE HOSPITAL. MOIST COUGH AND UNABLE TO CLEAR THICK MUCUS FROM THROAT, DEEP ORAL SUCTION OBTAIN SMALL AMT OF CLEAR TO WHITE SPUTUM. FINE CRACKLES TO BASES, NO LONGER DECREASED. ON 3L/NC TO MAINTAIN BIOX > 90%
--- NOTE | 2022-03-30 23:32 | NUR ---
PATIENT MORE AWAKE, ABLE TO BRUSH OWN TEETH WITH SUCTION TOOTHBRUSH AND ASKING APPROPRIATE QUESTIONS. ASKING WHAT HIS BLOOD PRESSURE WAS AND WHAT IT NEEDS TO BE FOR HIM TO BE ABLE TO GO HOME. STRONG MOIST COUGH CONTINUES PRODUCING SMALL AMT OF THICK CLEAR TO WHITE SPUTUM. PATIENT REQUESTING AN EMPTY CUP TO SPIT IN, ABLE TO PRODUCE A SMALL AMT OF SPUTUM.
--- NOTE | 2022-03-31 05:42 | NUR ---
SUMMARY PATIENT SLEEPING OFF AND ON T/O NIGHT. LESS CONFUSED TONIGHT COMPARED TO LAST NIGHT. NO HALLUCINATIONS T/O NIGHT. PATIENT ABLE TO ASSIST WITH REPOSITIONING IN BED. ON BEDPAN ONCE EARLY THIS MORNING FOR URGE TO HAVE BM WITH NO RESULTS. VSS T/O NIGHT LEVOPHED AND AMIO DRIP REMAIN OFF. MOIST COUGH WITH THICK SECRETIONS, COARSE RESP IN THROAT, BUT LUNG SOUNDS WITH FINE CRACKLES BASES. FREQUENT ORAL CARE AND DEEP ORAL SUCTIONING PROVIDED T/O NIGHT. PATIENT ABLE TO USE SUCTION TOOTHBRUSH AND ASSISTED AT TIMES WITH ORAL SUCTIONING, OBTAINING SMALL AMT OF CLEAR TO WHITE SPUTUM.
[2022-03-31 05:49] LABS: Hematocrit 28.8 % (37.0-53.0); Hemoglobin 10.2 g/dL (13.5-17.5); Mean Corpuscular HGB 32.6 pg (26.0-34.0); Mean Corpuscular HGB Conc 35.4 g/dL (31.5-36.5); Mean Corpuscular Volume 92 fL (80-100); Mean Platelet Volume 10.9 fL (9.1-12.4); Platelet Count 191 K/mm3 (150-400); RDW Coefficient Variation 16.1 % (11.7-14.2); RDW Standard Deviation 54.1 fL (35.1-46.3); Red Blood Cell Count 3.13 M/mm3 (4.30-5.90); White Blood Cell Count 8.14 K/mm3 (4.00-11.30)
[2022-03-31 06:59] LABS: Albumin/Globulin Ratio 0.2 (0.8-1.8); Bilirubin, Total 0.8 mg/dL (0.1-1.0); Bun/Creatinine Ratio 42.8 (12.0-20.0); Calcium, Blood 7.1 mg/dL (8.5-10.1); Creatinine, Blood 0.8 mg/dL (0.60-1.20); Globulin, Blood 4.2 g/dL (2.2-4.0); Potassium, Blood 3.5 mmol/L (3.5-5.5); Total Protein, Blood 5.2 g/dL (6.4-8.2)
--- NOTE | 2022-03-31 11:48 | NUR ---
PT A/O TO PERSON AND PLACE, NEEDS SOME REMINDING TO WHY HE IS HERE. HAS BEEN CALLING FOR ASSISTANCE APPROPRIATELY. PT IS ABLE TO BRUSH HIS OWN TEETH AND ALSO WANTS TO ASSIST WITH ANY CARE THAT HE CAN. GOT PT UP TO RECLINER WITH GAIT BELT AND 2 PERSON ASSIST. WEAK LE'S BUT PT FOLLOWS COMMANDS WELL. GETS A LITTLE SOB WITH MOVEMENT BUT DOES NOT DROP SPO2. ON 2L NC. PT WENT FOR BARIUM SWALLOW THIS AM AND ANDREW FROM [facility] PT DID WELL. ANDREW WILL BE ADDING NEW DIET ORDERS. NO SIGN OF DISTRESS. TAB ALARM ON FOR FALL PRECAUTION.
--- NOTE | 2022-03-31 17:18 | NUR ---
SUMMARY PT A/O TO PERSON AND PLACE, NEEDS REMINDING OF EVENTS. OOB TO RECLINER CHAIR MOST OF THE DAY. WORKED WITH PT AND OT THIS AFTERNOON. GETTING PT BACK TO BED THIS EVENING HE WAS MUCH STRONGER THAN THIS AM. HAS HAD SEVERAL LOOSE STOOLS TODAY. ABX CHANGED TODAY. PT ABLE TO DO HIS OWN PO CARE WHEN SET UP. PT IS MOTIVATED TO GET WELL AND GO HOME. NO SIGN OF DISTRESS. REPORT OFF TO DALE BYRD WHO WILL ASSUME CARE UNTIL SHIFT CHANGE.
--- NOTE | 2022-03-31 21:02 | NUR ---
REPORT GIVEN TO RN ON MEDICAL FLOOR.
[2022-04-01 05:06] LABS: Hematocrit 33.7 % (37.0-53.0); Hemoglobin 11.6 g/dL (13.5-17.5); Mean Corpuscular HGB Conc 34.4 g/dL (31.5-36.5); Mean Corpuscular Volume 93 fL (80-100); Mean Platelet Volume 10.7 fL (9.1-12.4); Platelet Count 225 K/mm3 (150-400); RDW Standard Deviation 54.9 fL (35.1-46.3); Red Blood Cell Count 3.63 M/mm3 (4.30-5.90); White Blood Cell Count 7.84 K/mm3 (4.00-11.30)
[2022-04-01 05:49] LABS: Albumin, Blood 1.2 g/dL (3.4-5.0); Albumin/Globulin Ratio 0.2 (0.8-1.8); Bilirubin, Total 0.4 mg/dL (0.1-1.0); Bun/Creatinine Ratio 33.5 (12.0-20.0); Calcium, Blood 7.7 mg/dL (8.5-10.1); Creatinine, Blood 0.87 mg/dL (0.60-1.20); Globulin, Blood 4.8 g/dL (2.2-4.0); Magnesium, Blood 2.2 mg/dL (1.6-2.4); Potassium, Blood 3.4 mmol/L (3.5-5.5)
[2022-04-01 06:58] LABS: BAND PERCENT MAN 3 % (0-8); BASOPHILS PERCENT MAN 0 % (0-2); EOSINOPHILS ABSOLUTE MAN 0.23 K/mm3 (0.00-0.68); EOSINOPHILS PERCENT MAN 3 % (0-6); LYMPHOCYTES % ATYPICAL MANUAL 1 % (0-0); LYMPHOCYTES PERCENT MAN 8 % (21-46); METAMYELOCYTE ABSOLUTE MAN 0.07 K/mm3 (0.00-0.00); METAMYELOCYTE PERCENT MAN 1 % (0-0); MONOCYTES ABSOLUTE MAN 0.15 K/mm3 (0.16-1.47); MONOCYTES PERCENT MAN 2 % (4-13); MYELOCYTE ABSOLUTE MAN 0.23 K/mm3 (0.00-0.00); MYELOCYTE PERCENT MAN 3 % (0-0); NEUTROPHILS ABSOLUTE MAN 6.42 K/mm3 (1.96-9.15); SEG NEUTROPHILS PERCENT MAN 79 % (41-73); TOTAL CELLS COUNTED 100
--- NOTE | 2022-04-01 12:59 | NUR ---
Spiritual care visit conducted. Patient is sitting on a chair and alert. Patient immediately tells me about his love for Dereje and that this connection to Valdemar has only happened in recent years. 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 He talks about his 3 marriages and that he has not been the dad he wishes he could have been. He talks about someone named Renate who is a caregiver who asked him to her. He talks about how she helped him stop drinking and live a healthier life. He weaves his relationship with God into every topic and is uplifted as he does so. I provide space for him to encourage himself and also provide therapeutic lsitening, spiritual guidance and prayer. Patient is voices much gratitude and showed signs of being encouraged in his belief system. I will continue to remain available to pateint and family.
--- NOTE | 2022-04-01 14:58 | NUR ---
Pt resting in recliner chair and is pleasantly confused. Pt reports pain in his abdomen but unable to describe intensity and type of pain. Pt appears to either be IGIUGIG or struggles with processing questions. Continued supportive visit. Called and spoke with Pt's DOLLY Dewitt. Provided update and reviewed plan of care. Engaged in therapeutic conversation regarding advanced care planning. Educated on disease process including trajectory. Discussed the importance of planning for the future as disease progresses. Discussed Pt's code status wishes. Educated on life sustaining treatments including risks and implications to CPR/Intubation. Renate reports Pt's wishes are DNR and at somepoint he completed a POLST reflecting these wishes but appears to be misplaced. Renate reports plan to visit Pt tomorrow and requests assistance with completing POLST tomorrow. Spoke with Dr Herrera and discussed case. Placed DNR order per V/O from Dr Herrera. Palliative Care will F/U to assist with completing POLST.
--- NOTE | 2022-04-01 19:18 | NUR ---
PT ALERT NO S/S OF ACUTE DISTRESS, SAFETY MEASURES IN PLACE REPORT GIVEN TO ON COMING NURSE.
--- NOTE | 2022-04-02 01:18 | NUR ---
SPOKE DR JACKSON ABOUT PATIENTS RESPIRATORY STATUS AND URINE OUTPUT. EXPLAINED PT HAS LR GOING AT 125 CC/HR, LUNGS SOUND WET, PATIENT IS FLUID OVERLOADED, AND MINIMAL URINARY OUTPUT. AWAITING ORDERS
[2022-04-02 05:13] LABS: Hematocrit 29.9 % (37.0-53.0); Hemoglobin 10.4 g/dL (13.5-17.5); Mean Corpuscular HGB 32.1 pg (26.0-34.0); Mean Corpuscular HGB Conc 34.8 g/dL (31.5-36.5); Mean Corpuscular Volume 92 fL (80-100); Mean Platelet Volume 11.3 fL (9.1-12.4); Platelet Count 250 K/mm3 (150-400); RDW Coefficient Variation 16.3 % (11.7-14.2); RDW Standard Deviation 55.1 fL (35.1-46.3); Red Blood Cell Count 3.24 M/mm3 (4.30-5.90); White Blood Cell Count 10.13 K/mm3 (4.00-11.30)
[2022-04-02 05:40] LABS: Albumin, Blood 1.1 g/dL (3.4-5.0); Albumin/Globulin Ratio 0.2 (0.8-1.8); Bilirubin, Total 0.4 mg/dL (0.1-1.0); Bun/Creatinine Ratio 34.2 (12.0-20.0); Calcium, Blood 7.3 mg/dL (8.5-10.1); Creatinine, Blood 0.76 mg/dL (0.60-1.20); Globulin, Blood 4.9 g/dL (2.2-4.0); Phosphorus, Blood 3.1 mg/dL (2.5-4.9); Potassium, Blood 3.5 mmol/L (3.5-5.5)
--- NOTE | 2022-04-02 06:34 | NUR ---
PATIENT ALERT TO SELF, SR ON TELE, 3L NC, 20 RFA / 20 LW / RADU POWERGLIDE, CHING FOR RETENTION, CRUSH PILLS WITH APPLESAUCE, UP TO CHAIR WITH PT ON 04/01, PATIENT LUNG SOUNDS WERE WET WITH CRACKLES AND OUTPUT MINIMAL, CALLED MD TO GET ORDER FOR LASIX AND TO STOP FLUIDS. URINE OUTPUT FOR SHIFT 1200
--- NOTE | 2022-04-02 12:01 | NUR ---
Received call from Pt's Primary RN Sukhdeep reporting Pt's MPOA is at bedside requesting to complete POLST. Pt resting in recliner chair and pleasantly confused. MPOA KD at bedside. Assisted with completing POLST. Will obtain copy of POLST upon physician signature for medical records. Palliative Care will remain available
--- NOTE | 2022-04-02 19:18 | NUR ---
PT ALERT NO S/S OF ACUTE DISTRESS, SAFETY MEASURES IN PLACE REPORT GIVEN TO ON COMING NURSE.
[2022-04-03 05:14] LABS: Hematocrit 31.6 % (37.0-53.0); Hemoglobin 10.7 g/dL (13.5-17.5); Mean Corpuscular HGB 31.8 pg (26.0-34.0); Mean Corpuscular HGB Conc 33.9 g/dL (31.5-36.5); Mean Corpuscular Volume 94 fL (80-100); Mean Platelet Volume 11.1 fL (9.1-12.4); Platelet Count 269 K/mm3 (150-400); RDW Coefficient Variation 16.3 % (11.7-14.2); RDW Standard Deviation 55.8 fL (35.1-46.3); Red Blood Cell Count 3.37 M/mm3 (4.30-5.90); White Blood Cell Count 10.88 K/mm3 (4.00-11.30)
--- NOTE | 2022-04-03 05:28 | NUR ---
PATIENT ALERT TO SELF, NO EVENTS OVERNIGHT, NPO AT MIDNIGHT FOR HIDA SCAN TODAY
[2022-04-03 05:44] LABS: Albumin, Blood 1.2 g/dL (3.4-5.0); Albumin/Globulin Ratio 0.2 (0.8-1.8); Bilirubin, Total 0.2 mg/dL (0.1-1.0); Bun/Creatinine Ratio 30.1 (12.0-20.0); Calcium, Blood 7.2 mg/dL (8.5-10.1); Creatinine, Blood 0.8 mg/dL (0.60-1.20); Magnesium, Blood 1.8 mg/dL (1.6-2.4); Phosphorus, Blood 2.6 mg/dL (2.5-4.9); Potassium, Blood 3.5 mmol/L (3.5-5.5); Total Protein, Blood 6.2 g/dL (6.4-8.2)
--- NOTE | 2022-04-03 19:14 | NUR ---
PT ALERT NO S/S OF ACUTE DISTRESS, SAFETY MEASURES IN PLACE REPORT GIVEN TO ON COMING NURSE.
--- NOTE | 2022-04-04 04:46 | NUR ---
PATIENT ALERT TO SELF, 3L NC, CHING, TOTAL CARE, NO EVENTS OVERNIGHT
--- NOTE | 2022-04-04 18:16 | NUR ---
SHIFT SUMMARY- PT PLEASANT, [place]. PT DYSPNEIC WITH EXERSION. EDEMA IN UBE +1. APPETITE GOOD. UP TO CHAIR FOR MEAL TOLERATES BUT TIRES QUICKLY. CHING DRAINING MAURY URINE, OUTPUT 600ML DURING SHIFT. WILL CONTINUE TO MONITOR. BED ALARM ON, CALL LUGHT IN REACH,
--- NOTE | 2022-04-05 04:48 | NUR ---
PATIENT ALERT TO SELF, NO TELE, 3LNC, 20 RFA SL, 20 L W SL, CHING FOR RETENTION, URINE DARK MAURY, PALLIATIVE ON CASE, NO EVENTS OVERNIGHT
[2022-04-05 05:13] LABS: BASOPHILS ABSOLUTE AUTO 0.04 K/mm3 (0.00-0.23); BASOPHILS PERCENT AUTO 0 % (0-2); EOSINOPHILS ABSOLUTE AUTO 0.23 K/mm3 (0.00-0.68); EOSINOPHILS PERCENT AUTO 2 % (0-6); Hematocrit 31.4 % (37.0-53.0); Hemoglobin 10.8 g/dL (13.5-17.5); IMMATURE GRAN ABSOLUTE AUTO 0.18 K/mm3 (0.00-0.10); IMMATURE GRAN PERCENT AUTO 2 % (0-1); LYMPHOCYTES ABSOLUTE AUTO 1.16 K/mm3 (0.84-5.20); LYMPHOCYTES PERCENT AUTO 10 % (21-46); MONOCYTES ABSOLUTE AUTO 0.48 K/mm3 (0.16-1.47); MONOCYTES PERCENT AUTO 4 % (4-13); Mean Corpuscular HGB 31.7 pg (26.0-34.0); Mean Corpuscular HGB Conc 34.4 g/dL (31.5-36.5); Mean Corpuscular Volume 92 fL (80-100); NEUTROPHILS ABSOLUTE AUTO 9.47 K/mm3 (1.96-9.15); NEUTROPHILS PERCENT AUTO 82 % (41-73); Platelet Count 312 K/mm3 (150-400); RDW Coefficient Variation 16.4 % (11.7-14.2); RDW Standard Deviation 55.4 fL (35.1-46.3); Red Blood Cell Count 3.41 M/mm3 (4.30-5.90); White Blood Cell Count 11.56 K/mm3 (4.00-11.30)
[2022-04-05 05:37] LABS: Albumin, Blood 1.2 g/dL (3.4-5.0); Albumin/Globulin Ratio 0.2 (0.8-1.8); Bilirubin, Total 0.3 mg/dL (0.1-1.0); Bun/Creatinine Ratio 22.5 (12.0-20.0); Calcium, Blood 7.1 mg/dL (8.5-10.1); Creatinine, Blood 0.76 mg/dL (0.60-1.20); Potassium, Blood 3.3 mmol/L (3.5-5.5); Total Protein, Blood 6.2 g/dL (6.4-8.2)
--- NOTE | 2022-04-05 18:11 | NUR ---
SHIFT SUMMARY PATIENT DENIES PAIN, NAUSEA, AND SHORTNESS OF BREATH AT REST. PATIENT REPORTS SOME SHORTNESS OF BREATH WITH ACTIVITY. PATIENT IS ON 4L VIA N/C. PATIENT SAURATING ABOVE 90%. HOME O2 EVAL DONE TODAY, PATIEN REQUIRES 6L WITH ACTIVITY. PT AND OT WORKED WITH PATIENT. PATIENT AMBULATED IN HALLWAY. PATIENT IS A SBA WITH A FWW. PATIENT HAD CHING, PATENT AND DRAINING TO GRAVITY. POWERGLIDE PLACED DUE TO NEED FOR 10-14 DAYS OF ABX OUT OF HOSPITAL. PT AND OT RECOMMENDING SNF. SEE CERAMIC TILER NOTES. PATIENT IS A&O X2-3. PATIENT FOLLOWS DIRECTIONS WELL AND VERY EASILY REDIRECTED. PATIENT IS EATING AND DRINKING FAIR. PATIENT IS VERY PLEASANT AND COOPERATIVE WITH CARE.
--- NOTE | 2022-04-06 04:39 | NUR ---
SHEET METAL SUPERVISOR SUMMARY VSS. LUNG SOUNDS DIMINISHED, NOTE OCCASIONAL COUGH. RECEIVED TESSALON DANISH AND NOTED HAD BEEN RESTING WITH FEW INTERRUPTIONS UNTIL A FEW MINUTES AGO. O2 AT 4L/MIN PER NC. TOLERATED MEDS WITH APPLESAUVE. ASPIRATION PRECAUTIONS MAINTAINED. CALL LIGHT IN ERACH. WILL CONTINUE TO MONITOR
--- NOTE | 2022-04-06 18:19 | NUR ---
PT IS A/OX2-3, PERSON, PLACE AND SITUATION. THE PT IS UP MWITH MINIMAL ASSIST USEING THE FWW. THE PT WAS UP AMBULATING IN THE WHITAKER WITH THE PHYSICAL THERAPIST TODAY. THE PT IS ON O2 VIA NC. THE PTS CHING CATHETER WAS REMOVED TODAY, PT WAS BLADDER SCANNED AFTER THE FIRST 4 HOURS OF REMOVAL ONLY 109 ML FOUND ON SCAN. PT SLEPT FOR MOST OF THE AFTERNOON. CALL LIGHT IN REACH. WILL CONTINUE TO MONITOR AND ASSESS FOR CHANGES
--- NOTE | 2022-04-07 03:25 | NUR ---
ROLL CUTTER SUMMARY VSS. O2 CONTINUES AT 4L/MIN PER NC. TAKES MEDS WITH APPLESAUCE, ASPIRATION PRECAUTIONS MAINTAINED. CHING WAS REMOVED ON DAY SHIFT, WAITING FOR PT TO VOID. BLADDER SCAN REVEALED 270 CC. PT VOICED HE WOULD TRY TO VOID LATER, WANTED TO SLEEP UNTIL THEN. HAS BEEN RESTING WITH OCCASIONAL COUGH. EDEMA OF BLE CONTINUES, CALL LIGHT IN REACH. WILL CONTINUE TO MONITOR
[2022-04-07 04:54] LABS: Hematocrit 29.9 % (37.0-53.0); Hemoglobin 10.2 g/dL (13.5-17.5); Mean Corpuscular HGB 32.1 pg (26.0-34.0); Mean Corpuscular HGB Conc 34.1 g/dL (31.5-36.5); Mean Corpuscular Volume 94 fL (80-100); Mean Platelet Volume 10.7 fL (9.1-12.4); Platelet Count 356 K/mm3 (150-400); RDW Coefficient Variation 16.6 % (11.7-14.2); RDW Standard Deviation 57.1 fL (35.1-46.3); Red Blood Cell Count 3.18 M/mm3 (4.30-5.90); White Blood Cell Count 9.05 K/mm3 (4.00-11.30)
[2022-04-07 05:08] LABS: Albumin, Blood 1.3 g/dL (3.4-5.0); Anion Gap 4 mmol/L (6-16); Blood Urea Nitrogen 16 mg/dL (8-24); Bun/Creatinine Ratio 22.4 (12.0-20.0); CO2, Blood 21 mmol/L (21-32); Calcium, Blood 7.5 mg/dL (8.5-10.1); Chloride, Blood 117 mmol/L (98-108); Creatinine, Blood 0.71 mg/dL (0.60-1.20); Glomerular Filtration Rate 90 (60-); Glucose, Blood 98 mg/dL (70-99); Phosphorus, Blood 2.9 mg/dL (2.5-4.9); Potassium, Blood 3.9 mmol/L (3.5-5.5); Sodium, Blood 142 mmol/L (136-145)
[2022-04-07 13:02] LABS: SARS-Cov-2 (COVID-19) PCR, MMC POSITIVE (NEGATIVE)
[2022-04-07 15:27] LABS: SARS-Cov-2 (COVID-19) Antigen Negative (NEGATIVE)
--- NOTE | 2022-04-07 17:38 | NUR ---
STRAIGHT CATH PT WAS BLADDER SCANED THIS EVENING AFTER POST VOID. PT WAS RETAINING 360 ML. A STRAIGHT CATH WAS PREFORMED AND OVER 300 ML REMOVED. PT TOLERATED WELL
--- NOTE | 2022-04-07 17:40 | NUR ---
PT IS A/OX3, SELF PLACE AND SITUATION. THE PT HAS MILD DEMENTIA/FORGETFULLNESS. PT UP IN THE CHAIR TODAY FOR MEALS. PT WAS UP AND SHOWERED. PT WAS TO BE DC'D TODAY, HOWEVER, WAS WAITING TO BE CLEARED OF COVID UNTIL LATE THIS AFTERNOON. DISCHARGE WAS HELD UNTIL TOMMORROW. PT APPEARS TO BE BREATHING EASILY ON 2L/MIN O2 AT THIS TIME. CALL LIGHT IN REACH. WILL CONTINUE TO MONITOR AND ASSESS FOR CHANGES
--- NOTE | 2022-04-08 09:00 | NUR ---
pt sitting up in a chair, pleasant and coopertive with care, follows commands well, but needs a lot of direction, a/ox2, very southern ute, lungs are clear in upper [place], dim in bases, resp even and unlabored, has occ nonproductive cough, currently on 3 liters 02 via n/c, resp even and unlabored at this time, hrirr, 2+ edema noted to b/l le, cap refill <3sec vs stable, afebrile, iv site to [place] is patent, but resistant, btx4, abd flat soft nontender, voids via urinal, will monitor, skin c/w/d, betsy ordaz, call light in reach.
[2022-04-08] MEDS ORDERED: VISBIOME 112.51 EACH PO (12:31)
[2022-04-08] MEDS ORDERED: ELIQUIS5 M2 PO (12:31)
[2022-04-08] MEDS ORDERED: TAMS.4ER PO (12:31)
[2022-04-08] MEDS ORDERED: CEFTRIAXONE2 G1 IV (12:32)
--- NOTE | 2022-04-08 14:26 | NUR ---
pt is being tx to [facility], pete gonzales had dressing changed and is flushing, will leave for abx, called report to Hiral Hernandez, bladder scan showed 180mls post void of 200, had 3 voids today. will be picked up at 1445 by transport, call light in reach.
--- NOTE | 2022-04-08 15:07 | NUR ---
transport here to take pt to [facility]. left via wheelchair with his belongings.
== END 2022-04-08 15:14 | DRG 871 ==
LOC: ER 18:02 → MEDS 03-29 00:28 → ICUE 03-29 00:28 → MEDS 03-29 00:28 → ICUW 03-29 00:28 → ICUE 03-29 00:35 → MEDS 03-31 21:10 → ENPENDDIS 04-07 17:16 → MEDS 04-08 15:14
PROVIDERS: Family Medicine; Hospitalist; Internal Medicine; Student in an Organized Health Care Education/Training Program; ADMIT Family Medicine
PROC: 3E03329 Introduction of Other Anti-infective into Peripheral Vein, Percutaneous Approach (ICD-10-PCS; principal; 2022-03-29)
PROC: 3E033XZ Introduction of Vasopressor into Peripheral Vein, Percutaneous Approach (ICD-10-PCS; 2022-03-29)
PROC: 0T9B30Z Drainage of Bladder with Drainage Device, Percutaneous Approach (ICD-10-PCS; 2022-03-29)
PROC: 5A09357 Assistance with Respiratory Ventilation, Less than 24 Consecutive Hours, Continuous Positive Airway Pressure (ICD-10-PCS; 2022-03-29)
PROC: 5A0935A Assistance with Respiratory Ventilation, Less than 24 Consecutive Hours, High Flow/Velocity Cannula (ICD-10-PCS; 2022-03-29)
DX: A40.3 Sepsis due to Streptococcus pneumoniae (principal); J18.9 Pneumonia, unspecified organism; J69.0 Pneumonitis due to inhalation of food and vomit; J96.01 Acute respiratory failure with hypoxia; R65.21 Severe sepsis with septic shock; E87.20 Acidosis, unspecified; N17.9 Acute kidney failure, unspecified; K86.2 Cyst of pancreas; Z66 Do not resuscitate; Z20.822 Contact with and (suspected) exposure to COVID-19; H91.90 Unspecified hearing loss, unspecified ear; F03.90 Unspecified dementia, unspecified severity, without behavioral disturbance, psychotic disturbance, mood disturbance, and anxiety; D64.9 Anemia, unspecified; E87.6 Hypokalemia; K80.20 Calculus of gallbladder without cholecystitis without obstruction; I27.20 Pulmonary hypertension, unspecified; R13.10 Dysphagia, unspecified; I48.91 Unspecified atrial fibrillation; R33.9 Retention of urine, unspecified; I71.43 Infrarenal abdominal aortic aneurysm, without rupture; E87.70 Fluid overload, unspecified; Z87.891 Personal history of nicotine dependence; Z28.21 Immunization not carried out because of patient refusal; Z78.1 Physical restraint status
CPT/HCPCS: 0241U; 36415; 51702; 70450; 71046; 71260; 74177; 74230; 76705; 78226; 80053; 80069; 81001; 83605; 83690; 83735; 83880; 84100; 84443; 85025; 85027; 87040; 87086; 87186; 87426; 92526; 92610; 92611; 93005; 93010; 93306; 94664; 94760; 94761; 94762; 96361; 96365-59; 96366; 96367; 96368; 97110; 97116; 97162; 97166; 97530; 97535; 99285-25; A9270; A9537; C1751; C9803; J0282; J0692; J0696; J1650; J1940; J2543; J3370; J3480; J7030; J7050; J7060; J7120; Q9967; U0004

== ENCOUNTER 2022-06-10 10:18 | Emergency (ER) | payer MEDICARE, OTHER ==
[~2022-06-10] VITALS: Ht 172.7 cm; Wt 61.2 kg
[~2022-06-10 10:18] MED LIST changes: +ACET325 PO; +ASPI81CH PO; +CEFTRIAXONE2 G1 IV; +Calcium Carbon500 MG PO; +ELIQUIS5 M2 PO; +LOPE2C PO; +LORA10ER PO; +MEMA5TAB PO; +MIRALAX17 GM PO; +NAPR500ERA PO; +ROBITUSSIN PO; +Simvastatin20 MG PO; +TAMS.4ER PO; +VISBIOME 112.51 EACH PO
[2022-06-10 11:03] LABS: BASOPHILS ABSOLUTE AUTO 0.05 K/mm3 (0.00-0.23); BASOPHILS PERCENT AUTO 1 % (0-2); EOSINOPHILS ABSOLUTE AUTO 0.23 K/mm3 (0.00-0.68); EOSINOPHILS PERCENT AUTO 4 % (0-6); Hematocrit 32.2 % (37.0-53.0); Hemoglobin 10.4 g/dL (13.5-17.5); IMMATURE GRAN ABSOLUTE AUTO 0.01 K/mm3 (0.00-0.10); IMMATURE GRAN PERCENT AUTO 0 % (0-1); LYMPHOCYTES ABSOLUTE AUTO 1.56 K/mm3 (0.84-5.20); LYMPHOCYTES PERCENT AUTO 30 % (21-46); MONOCYTES ABSOLUTE AUTO 0.45 K/mm3 (0.16-1.47); MONOCYTES PERCENT AUTO 9 % (4-13); Mean Corpuscular HGB 29.7 pg (26.0-34.0); Mean Corpuscular HGB Conc 32.3 g/dL (31.5-36.5); Mean Corpuscular Volume 92 fL (80-100); Mean Platelet Volume 8.9 fL (9.1-12.4); NEUTROPHILS ABSOLUTE AUTO 2.89 K/mm3 (1.96-9.15); NEUTROPHILS PERCENT AUTO 56 % (41-73); Platelet Count 258 K/mm3 (150-400); RDW Coefficient Variation 15.6 % (11.7-14.2); RDW Standard Deviation 52.3 fL (35.1-46.3); White Blood Cell Count 5.19 K/mm3 (4.00-11.30)
[2022-06-10 11:12] LABS: International Normalized Ratio 1.01; Prothrombin Time Results 10.6 Sec (9.7-11.5)
[2022-06-10 11:16] LABS: Albumin, Blood 2.3 g/dL (3.4-5.0); Albumin/Globulin Ratio 0.4 (0.8-1.8); Bilirubin, Total 0.2 mg/dL (0.1-1.0); Bun/Creatinine Ratio 25.6 (12.0-20.0); Calcium, Blood 8.4 mg/dL (8.5-10.1); Creatinine, Blood 0.9 mg/dL (0.60-1.20); Globulin, Blood 6.1 g/dL (2.2-4.0); Potassium, Blood 4.4 mmol/L (3.5-5.5); Total Protein, Blood 8.4 g/dL (6.4-8.2)
[2022-06-10 18:40] VITALS: BP 132/71
== END 2022-06-10 18:49 | disposition home or self-care (01) ==
LOC: ER 10:18
PROVIDERS: Emergency Medicine
DX: J16.8 Pneumonia due to other specified infectious organisms (principal); R04.2 Hemoptysis; I10 Essential (primary) hypertension; F03.90 Unspecified dementia, unspecified severity, without behavioral disturbance, psychotic disturbance, mood disturbance, and anxiety; I48.91 Unspecified atrial fibrillation; E78.00 Pure hypercholesterolemia, unspecified; Z79.01 Long term (current) use of anticoagulants; Z79.82 Long term (current) use of aspirin; Z79.899 Other long term (current) drug therapy
CPT/HCPCS: 71046; 80053; 85025; 85610; 99284-25

== ENCOUNTER 2022-10-22 16:53 | Emergency (ER) | payer MEDICARE, OTHER ==
[~2022-10-22] VITALS: Ht 172.7 cm; Wt 72.6 kg
[2022-10-22 18:17] LABS: BASOPHILS ABSOLUTE AUTO 0.03 K/mm3 (0.00-0.23); BASOPHILS PERCENT AUTO 1 % (0-2); EOSINOPHILS ABSOLUTE AUTO 0.11 K/mm3 (0.00-0.68); EOSINOPHILS PERCENT AUTO 2 % (0-6); Hematocrit 35.7 % (37.0-53.0); Hemoglobin 12.2 g/dL (13.5-17.5); IMMATURE GRAN ABSOLUTE AUTO 0.04 K/mm3 (0.00-0.10); IMMATURE GRAN PERCENT AUTO 1 % (0-1); LYMPHOCYTES ABSOLUTE AUTO 1.39 K/mm3 (0.84-5.20); LYMPHOCYTES PERCENT AUTO 27 % (21-46); MONOCYTES ABSOLUTE AUTO 0.42 K/mm3 (0.16-1.47); MONOCYTES PERCENT AUTO 8 % (4-13); Mean Corpuscular HGB Conc 34.2 g/dL (31.5-36.5); Mean Corpuscular Volume 91 fL (80-100); Mean Platelet Volume 9.7 fL (9.1-12.4); NEUTROPHILS ABSOLUTE AUTO 3.14 K/mm3 (1.96-9.15); NEUTROPHILS PERCENT AUTO 61 % (41-73); Platelet Count 151 K/mm3 (150-400); RDW Standard Deviation 50.8 fL (35.1-46.3); Red Blood Cell Count 3.93 M/mm3 (4.30-5.90); White Blood Cell Count 5.13 K/mm3 (4.00-11.30)
[2022-10-22 18:19] LABS: Albumin, Blood 3.2 g/dL (3.4-5.0); Albumin/Globulin Ratio 0.5 (0.8-1.8); Bilirubin, Total 0.3 mg/dL (0.1-1.0); Bun/Creatinine Ratio 16.4 (12.0-20.0); Calcium, Blood 8.5 mg/dL (8.5-10.1); Creatinine, Blood 1.1 mg/dL (0.60-1.20); Potassium, Blood 4.1 mmol/L (3.5-5.5); Total Protein, Blood 9.2 g/dL (6.4-8.2)
[2022-10-22 20:00] VITALS: BP 188/90
== END 2022-10-22 20:55 | disposition home or self-care (01) ==
LOC: ER 16:53
PROVIDERS: Emergency Medicine
DX: R55 Syncope and collapse (principal); I10 Essential (primary) hypertension; G47.30 Sleep apnea, unspecified; E78.00 Pure hypercholesterolemia, unspecified; I48.91 Unspecified atrial fibrillation; Z87.891 Personal history of nicotine dependence
CPT/HCPCS: 71046; 80053; 84484; 85025; 93005; 93010; 99284-25

== ENCOUNTER 2024-09-19 14:44 | Emergency (ER) | payer MEDICARE, OTHER ==
[~2024-09-19] VITALS: Ht 170.2 cm; Wt 72.6 kg
[2024-09-19 15:15] LABS: BASOPHILS ABSOLUTE AUTO 0.05 K/mm3 (0.00-0.23); BASOPHILS PERCENT AUTO 1 % (0-2); EOSINOPHILS ABSOLUTE AUTO 0.46 K/mm3 (0.00-0.68); EOSINOPHILS PERCENT AUTO 8 % (0-6); Hematocrit 32.3 % (37.0-53.0); Hemoglobin 11.0 g/dL (13.5-17.5); IMMATURE GRAN ABSOLUTE AUTO 0.01 K/mm3 (0.00-0.10); IMMATURE GRAN PERCENT AUTO 0 % (0-1); LYMPHOCYTES ABSOLUTE AUTO 1.83 K/mm3 (0.84-5.20); LYMPHOCYTES PERCENT AUTO 31 % (21-46); MONOCYTES ABSOLUTE AUTO 0.37 K/mm3 (0.16-1.47); MONOCYTES PERCENT AUTO 6 % (4-13); Mean Corpuscular HGB Conc 34.1 g/dL (31.5-36.5); Mean Corpuscular Volume 95 fL (80-100); NEUTROPHILS ABSOLUTE AUTO 3.13 K/mm3 (1.96-9.15); NEUTROPHILS PERCENT AUTO 53 % (41-73); NRBC ABSOLUTE 0.00 K/mm3 (0.00-0.02); NRBC Auto 0.0 /100 WBC (0.0-0.2); Platelet Count 147 K/mm3 (150-400); RDW Coefficient Variation 14.2 % (11.7-14.2); RDW Standard Deviation 48.9 fL (35.1-46.3)
[2024-09-19 15:31] LABS: Alanine Aminotransfer (ALT/SGP 13.0 U/L (12-78); Albumin, Blood 2.6 g/dL (3.4-5.0); Albumin/Globulin Ratio 0.4 (0.8-1.8); Anion Gap 10.0 mmol/L (3-11); Aspartate Aminotrans (AST/SGOT 38.0 U/L (12-37); Bilirubin, Total 0.5 mg/dL (0.1-1.0); Blood Urea Nitrogen 15.0 mg/dL (8-24); CO2, Blood 21.0 mmol/L (21-32); Calcium, Blood 7.6 mg/dL (8.5-10.1); Chloride, Blood 105.0 mmol/L (98-108); Creatinine, Blood 0.93 mg/dL (0.60-1.20); Globulin, Blood 6.1 g/dL (2.2-4.0); Glucose, Blood 130.0 mg/dL (70-99); Potassium, Blood 5.2 mmol/L (3.5-5.5); Sodium, Blood 131.0 mmol/L (136-145); Total Protein, Blood 8.7 g/dL (6.4-8.2)
[2024-09-19 15:48] LABS: Influenza A, PCR NEGATIVE (NEGATIVE); Influenza B, PCR NEGATIVE (NEGATIVE); Resp Syncytial Virus, PCR NEGATIVE (NEGATIVE); SARS-Cov-2 (COVID-19) PCR, MMC NEGATIVE (NEGATIVE)
[2024-09-19] MEDS ORDERED: BENZ100A PO (16:45)
[2024-09-19 17:00] VITALS: BP 164/88
== END 2024-09-19 17:51 | disposition home or self-care (01) ==
LOC: ER 14:44
PROVIDERS: Emergency Medicine
DX: R05.9 Cough, unspecified (principal); I10 Essential (primary) hypertension; I48.91 Unspecified atrial fibrillation; F03.90 Unspecified dementia, unspecified severity, without behavioral disturbance, psychotic disturbance, mood disturbance, and anxiety; Z79.82 Long term (current) use of aspirin; Z79.01 Long term (current) use of anticoagulants; Z79.899 Other long term (current) drug therapy; Z87.891 Personal history of nicotine dependence
CPT/HCPCS: 71046; 80053; 85025; 87637; 99284-25; A9270